=== PATIENT | female | born 1985 | race Caucasian/White ===

== ENCOUNTER 2017-09-05 04:50 | Emergency (ER) | payer OTHER ==
--- NOTE | 2017-09-05 05:08 | ED Physician Documentation ---
PD HPI ABD PAIN - Stated complaint Stated Complaint: ABDOMINAL PAIN - Chief complaint Chief Complaint: Abd Pain - History obtained from History obtained from: Patient - History of Present Illness Timing - onset: How many days ago (2) Timing - duration: Days (2) Timing - details: Gradual onset, Still present, Waxing and waning Quality: Cramping, Aching, Pain Location: RUQ, Epigastric Radiation: Upper back. No: Chest Improved by: No: Eating Worsened by: Eating. No: Palpation Associated symptoms: Nausea. No: Fever, Vomiting, Diarrhea, Constipation, Melena, Dysuria, Hematuria Similar symptoms before: Has not had sx before Recently seen: Not recently seen Review of Systems Constitutional: denies: Fever, Chills Nose: denies: Rhinorrhea / runny nose, Congestion Throat: denies: Sore throat Cardiac: denies: Chest pain / pressure, Palpitations Respiratory: denies: Dyspnea GI: reports: Abdominal Pain, Nausea, Vomiting (just once). denies: Constipation , Diarrhea : denies: Dysuria, Frequency PD PAST MEDICAL HISTORY - Past Medical History Past Medical History: No GI: None - Past Surgical History Past Surgical History: No - Present Medications Home Medications: Ambulatory Orders Medication Instructions Recorded Confirmed Famotidine [Pepcid] 20 mg PO ONCE #15 tablet 09/05/17 Ondansetron Odt [Zofran] 4 mg TL Q6H PRN #15 tablet 09/05/17 - Allergies Allergies/Adverse Reactions: Allergies Allergy/AdvReac Type Severity Reaction Status Date / Time No Known Drug Allergies Allergy Verified 09/05/17 04:57 - Social History Does the pt smoke?: No Smoking Status: Never smoker Does the pt drink ETOH?: Yes Does the pt have substance abuse?: No PD ED PE NORMAL - Vitals Vital signs reviewed: Yes - General General: Alert and oriented X 3, Well developed/nourished - HEENT HEENT: PERRL, Moist mucous membranes (nonicteric), Pharynx benign - Neck Neck: Supple, no meningeal sign, No adenopathy - Cardiac Cardiac: RRR (mild tachy), No murmur - Respiratory Respiratory: Clear bilaterally - Abdomen Abdomen: Normal bowel sounds, Soft, Non distended, No organomegaly, Other ( tender upper abd mid and right, without percussion tenderness nor rebound. Bedside U/S shows normal appearing GB with limited view.) Results - Vitals Vitals: Vital Signs - 24 hr 09/05/17 09/05/17 04:54 06:35 Temperature 36.8 C 36.8 C Heart Rate 105 H 68 Respiratory 18 16 Rate Blood Pressure 156/100 H 110/62 O2 Saturation 98 96 Oxygen O2 Source Room air - Labs Labs: Laboratory Tests 09/05/17 09/05/17 05:25 05:25 WBC 9.9 RBC 4.68 Hgb 13.9 Hct 42.2 MCV 90.1 MCH 29.7 MCHC 33.0 RDW 12.9 Plt Count 254 MPV 7.2 L Neut # 6.3 Lymph # 2.9 Tama # 0.7 Eos # 0.1 Baso # 0.0 Absolute Nucleated RBC 0.00 Nucleated RBC % 0.0 Sodium 136 Potassium 3.6 Chloride 104 Carbon Dioxide 24 Anion Gap 8.0 BUN 13 Creatinine 0.5 Estimated GFR (MDRD) 143 Glucose 104 H Calcium 8.2 L Total Bilirubin 0.8 AST 77 H ALT 141 H Alkaline Phosphatase 74 Total Protein 7.5 Albumin 4.3 Globulin 3.2 Albumin/Globulin Ratio 1.3 Lipase 19 L PD MEDICAL DECISION MAKING - ED course Complexity details: reviewed results (labs are okay and bedside U/S shows normal appearing GB. ), re-evaluated patient (improved with fluids and meds.), considered differential, d/w patient Departure - Departure Disposition: 01 Home, Self Care Clinical Impression: Abdominal pain Qualifiers: Abdominal location: upper abdomen, unspecified Qualified Code(s): R10.10 - Upper abdominal pain, unspecified Condition: Stable Record reviewed to determine appropriate education?: Yes Instructions: ED Abdominal Pain Unkn Cause Follow-Up: Sarah Wagner PA-C [Primary Care Provider] - Prescriptions: Famotidine [Pepcid] 20 mg PO ONCE #15 tablet Ondansetron Odt [Zofran] 4 mg TL Q6H PRN #15 tablet PRN Reason: Nausea / Vomiting Comments: Small frequent fluids and bland food. Tylenol if needed for pain. This might be an irritation of the stomach called gastritis. I would avoid ibuprofen or naproxen for pain. These may irritate the stomach. Add hydrocodone if needed for pain every 4-6 hours. Use some acid reducing medicines such as famotidine daily for 10-14 days. The pain medications can be constipating so it take a daily stool softener for the next few days. Recheck if not improved in the next day and follow-up with your primary care if not better through tomorrow. Return if worsening pain, fever, repetitive vomiting, blood in the stool, other concerns. Discharge Date/Time: 09/05/17 06:55
[2017-09-05] MEDS ORDERED: MAG HYDROX/AL HYDROX/SIMETH 30 ML UDC PO STA (05:19)
[2017-09-05] MEDS ORDERED: LIDOCAINE VISCOUS 2% 15 ML UDC MM STA (05:19)
[2017-09-05] MEDS ORDERED: ONDANSETRON 4 MG/2 ML VIAL IVP STA (05:19)
[2017-09-05] MEDS ORDERED: ACETAMINOPHEN 325 MG TABLET PO STA (05:19)
[2017-09-05] MEDS ORDERED: LIDOCAINE VISCOUS 2% 15 ML UDC MM ONE (05:33)
[2017-09-05] MEDS ORDERED: ACETAMINOPHEN 325 MG TABLET PO ONE (05:33)
[2017-09-05] MEDS ORDERED: MAG HYDROX/AL HYDROX/SIMETH 30 ML UDC ONE (05:33)
[2017-09-05 05:38] LABS: BASOPHILS % (AUTO) 0.3 %; EOSINOPHILS # (AUTO) 0.1 10^3/uL (0.0-0.7); EOSINOPHILS % (AUTO) 0.9 %; HCT - HEMATOCRIT 42.2 % (37.0-47.0); HGB - HEMOGLOBIN 13.9 g/dL (12.0-16.0); LYMPHOCYTES # (AUTO) 2.9 10^3/uL (1.5-3.5); MEAN CORPUSCULAR HEMOGLOBIN 29.7 pg (27.0-31.0); MEAN CORPUSCULAR VOLUME 90.1 fL (81.0-99.0); MEAN PLATELET VOLUME 7.2 fL (7.9-10.8); MONOCYTES # (AUTO) 0.7 10^3/uL (0.0-1.0); MONOCYTES % (AUTO) 6.8 %; NEUTROPHILS # (AUTO) 6.3 10^3/uL (1.5-6.6); RED BLOOD COUNT 4.68 10^6/uL (4.20-5.40); RED CELL DISTRIBUTION WIDTH 12.9 % (12.0-15.0); UNCORRECTED WHITE BLOOD COUNT 9.9 x10^3/uL; WHITE BLOOD COUNT 9.9 x10^3/uL (4.8-10.8)
[2017-09-05 05:48] LABS: ALBUMIN/GLOBULIN RATIO 1.3 (1.0-2.2); BILIRUBIN,TOTAL 0.8 mg/dL (0.2-1.0); CALCIUM 8.2 mg/dL (8.5-10.3); CREATININE 0.5 mg/dL (0.4-1.0); POTASSIUM 3.6 mmol/L (3.5-5.0); TOTAL PROTEIN 7.5 g/dL (6.7-8.2)
[2017-09-05] MEDS ORDERED: KETOROLAC 60 MG/2 ML VIAL IVP STA (06:10)
[2017-09-05] MEDS ORDERED: HYDROcod/ACET 5/325 Prepack 6 PO ONE ×2 (06:11→06:32)
[2017-09-05] MEDS ORDERED: KETOROLAC 30 MG/ML VIAL ONE (06:32)
[2017-09-05 06:37] VITALS: BP 110/62
== END 2017-09-05 06:55 | disposition home or self-care (01) ==
LOC: ED 04:50
DX: R10.11 Right upper quadrant pain (principal); R10.13 Epigastric pain; R11.0 Nausea
CPT/HCPCS: 36415; 80053; 83690; 85025; 96374; 96375; 99283; 99284; A9270

== ENCOUNTER 2018-03-11 17:18 | Emergency (ER) | payer OTHER ==
[2018-03-11 17:43] LABS: GLUCOSE, URINE (UA) NEGATIVE (NEGATIVE); KETONES,URINE (UA) >=80 mg/dL (NEGATIVE); LEUKOCYTE ESTERASE, URINE NEGATIVE (NEGATIVE); NITRITE,URINE NEGATIVE (NEGATIVE); OCCULT BLOOD,URINE MODERATE (NEGATIVE); PH,URINE 5.5 PH (5.0-7.5); PROTEIN,URINE 30 mg/dL (NEGATIVE); UROBILINOGEN,URINE 4 E.U./dL (NORMAL)
[2018-03-11] MEDS ORDERED: SODIUM CHLORIDE 0.9% 1,000 ML IV ONE (17:46)
[2018-03-11 17:47] LABS: CLARITY,URINE HAZY (CLEAR)
--- NOTE | 2018-03-11 17:47 | ED Physician Documentation ---
History of Present Illness - Stated complaint Stated Complaint: N/V+5DAYS - Chief complaint Chief Complaint: Abd Pain - History obtained from History obtained from: Patient - History of Present Illness Timing: How many days ago (5) Pain level max: 5 Pain level now: 5 Improved by: nothing Worsened by: eating - Additonal information Additional information: States intermittent vomiting for past 5 days. Has epigastric pain, waxes and wanes. Has never had symptoms like this before. Had an IUD placed approximately 2 months ago. No recent antibiotics. No recent travel. No bad food. 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 - Present Medications Home Medications: Ambulatory Orders Medication Instructions Recorded Confirmed Famotidine [Pepcid] 20 mg PO BID #60 tablet 03/11/18 Ondansetron Odt [Zofran] 4 mg TL Q6H PRN #10 tablet 03/11/18 - Allergies Allergies/Adverse Reactions: Allergies Allergy/AdvReac Type Severity Reaction Status Date / Time No Known Drug Allergies Allergy Verified 03/11/18 17:30 - Social History Does the pt smoke?: No Smoking Status: Never smoker Does the pt drink ETOH?: Yes Does the pt have substance abuse?: No PD ED PE NORMAL - Vitals Vital signs reviewed: Yes - General General: Alert and oriented X 3, No acute distress - HEENT HEENT: PERRL, Moist mucous membranes - Neck Neck: Supple, no meningeal sign - Cardiac Cardiac: RRR, Strong equal pulses - Respiratory Respiratory: No respiratory distress, Clear bilaterally - Abdomen Abdomen: Soft, Non tender, Non distended - Back Back: No CVA TTP, No spinal TTP - Derm Derm: Warm and dry - Extremities Extremities: No edema, No calf tenderness / cord - Neuro Neuro: Alert and oriented X 3 - Psych Psych: Normal mood, Normal affect Results - Vitals Vitals: Vital Signs - 24 hr 03/11/18 03/11/18 03/11/18 17:28 17:32 19:35 Temperature 98.6 C H Heart Rate 85 83 67 Respiratory 22 16 17 Rate Blood Pressure 150/94 H 145/95 H 148/89 H O2 Saturation 100 100 100 03/11/18 03/11/18 20:52 21:58 Temperature Heart Rate 68 Respiratory 16 17 Rate Blood Pressure 137/87 H O2 Saturation 100 Oxygen O2 Source Room air - Labs Labs: Laboratory Tests 03/11/18 03/11/18 03/11/18 17:31 18:04 18:04 WBC 14.5 H RBC 4.98 Hgb 14.7 Hct 44.2 MCV 88.7 MCH 29.5 MCHC 33.2 RDW 13.0 Plt Count 364 MPV 7.2 L Neut # (Auto) 9.1 H Lymph # (Auto) 4.7 H [place] # (Auto) 0.6 Eos # (Auto) 0.0 Baso # (Auto) 0.1 Absolute Nucleated RBC 0.01 Nucleated RBC % 0.0 Sodium 133 L Potassium 3.5 Chloride 97 L Carbon Dioxide 22 Anion Gap 14.0 H BUN 15 Creatinine 0.6 Estimated GFR (MDRD) 116 Glucose 96 Calcium 9.7 Total Bilirubin 2.0 H AST 112 H ALT 116 H Alkaline Phosphatase 55 Total Protein 9.3 H Albumin 5.1 Globulin 4.2 Albumin/Globulin Ratio 1.2 Lipase 32 Urine Color DARK YELLOW Urine Clarity HAZY Urine pH 5.5 Ur Specific Bixby >=1.030 H Urine Protein 30 H Urine Glucose (UA) NEGATIVE Urine Ketones >=80 H Urine Occult Blood MODERATE H Urine Nitrite NEGATIVE Urine Bilirubin MODERATE H Urine Urobilinogen 4 H Ur Leukocyte Esterase NEGATIVE Urine RBC 11-25 H Urine WBC 6-10 H Ur Squamous Epith Cells MANY Squamous H Urine Bacteria Many H Urine Mucus Few Strands Ur Microscopic Review INDICATED Urine Culture Comments NOT INDICATED Urine HCG, Qual NEGATIVE - Rads (name of study) RUQ US Radiology: Prelim report reviewed, EMP read contemporaneously, See rad report ( No cholelithiasis nor cholecystitis. . Fatty liver with 2 small lesions right lobe, consistent with hemangiomas. ) PD MEDICAL DECISION MAKING - ED course Complexity details: reviewed results, re-evaluated patient, considered differential, d/w patient ED course: Patient is a 32-year-old female who presents to the emergency department with vomiting for the past 4-5 days, had diarrhea initially but now resolved. She feels much better after IV fluids and Zofran. GI cocktail resolved her abdominal pain. Possible gastritis from the vomiting? She is well-appearing, nontoxic. Mild leukocytosis. Still has no abdominal tenderness on exam. No CVA tenderness. Urinalysis appears contaminated and she does not have symptoms consistent with pyelonephritis or UTI. Will continue supportive care and follow -up with her doctor. Patient counseled regarding signs and symptoms for which I believe and urgent re-evaluation would be necessary. Patient with good understanding of and agreement to plan and is comfortable going home at this time This document was made in part using voice recognition software. While efforts are made to proofread this document, sound alike and grammatical errors may occur. Departure - Departure Disposition: 01 Home, Self Care Clinical Impression: Elevated liver enzymes Vomiting Qualifiers: Vomiting type: unspecified Vomiting Intractability: non-intractable Nausea presence: with nausea Qualified Code(s): R11.2 - Nausea with vomiting, unspecified Gastritis Qualifiers: Gastritis type: unspecified gastritis Chronicity: acute Gastritis bleeding: without bleeding Qualified Code(s): K29.00 - Acute gastritis without bleeding Condition: Good Instructions: ED Gastritis, ED Nausea Vomiting Follow-Up: your,doctor in 1 week if not better [Other] Prescriptions: Famotidine [Pepcid] 20 mg PO BID #60 tablet Ondansetron Odt [Zofran] 4 mg TL Q6H PRN #10 tablet PRN Reason: Nausea / Vomiting Comments: Return if you worsen. This should improve over the next few days. Follow-up with your doctor for repeat testing of your liver enzymes only 1-2 weeks as they were elevated today. Discharge Date/Time: 03/11/18 22:05
[2018-03-11 17:50] LABS: BILIRUBIN,URINE MODERATE (NEGATIVE); HCG UR QUAL NEGATIVE; ICTOTEST,URINE POSITIVE
[2018-03-11] MEDS ORDERED: ONDANSETRON 4 MG/2 ML VIAL IVP STA (18:02)
[2018-03-11 18:09] LABS: BACTERIA,URINE Many /HPF (None Seen); SQUAMOUS EPITHELIAL CELL,UR MANY Squamous (<= Few)
[2018-03-11 18:10] LABS: MUCUS,URINE Few Strands
[2018-03-11 18:15] LABS: BASOPHILS # (AUTO) 0.1 10^3/uL (0.0-0.1); BASOPHILS % (AUTO) 0.5 %; EOSINOPHILS % (AUTO) 0.2 %; HGB - HEMOGLOBIN 14.7 g/dL (12.0-16.0); LYMPHOCYTES # (AUTO) 4.7 10^3/uL (1.5-3.5); LYMPHOCYTES % (AUTO) 32.3 %; MEAN CORPUSCULAR HEMOGLOBIN 29.5 pg (27.0-31.0); MEAN CORPUSCULAR HGB CONC 33.2 g/dL (32.0-36.0); MEAN CORPUSCULAR VOLUME 88.7 fL (81.0-99.0); MEAN PLATELET VOLUME 7.2 fL (7.9-10.8); MONOCYTES # (AUTO) 0.6 10^3/uL (0.0-1.0); NEUTROPHILS # (AUTO) 9.1 10^3/uL (1.5-6.6); PLT - PLATELET COUNT 364 10^3/uL (130-450); RED BLOOD COUNT 4.98 10^6/uL (4.20-5.40); WHITE BLOOD COUNT 14.5 x10^3/uL (4.8-10.8)
[2018-03-11 18:32] LABS: ALBUMIN 5.1 g/dL (3.2-5.5); ALBUMIN/GLOBULIN RATIO 1.2 (1.0-2.2); CALCIUM 9.7 mg/dL (8.5-10.3); CREATININE 0.6 mg/dL (0.4-1.0); TOTAL PROTEIN 9.3 g/dL (6.7-8.2)
--- NOTE | 2018-03-11 20:46 | Ultrasound Preliminary Report ---
Exam: US ABDOMEN LIMITED IMPRESSION: 1. No cholelithiasis nor cholecystitis. 2. Fatty liver with 2 small lesions right lobe, consistent with hemangiomas. [facility] SITE ID: [id number]
[2018-03-11] MEDS ORDERED: KETOROLAC 60 MG/2 ML VIAL IVP STA (20:52)
[2018-03-11] MEDS ORDERED: MAG HYDROX/AL HYDROX/SIMETH 30 ML UDC PO STA (21:08)
[2018-03-11] MEDS ORDERED: LIDOCAINE VISCOUS 2% 15 ML UDC MM STA (21:08)
[2018-03-11] MEDS ORDERED: FAMOTIDINE 20 MG TABLET PO STA (21:08)
[2018-03-11] MEDS ORDERED: SUCRALFATE 1 GM/10 ML UDC PO STA (21:08)
[2018-03-11] MEDS ORDERED: PHENobarb/HYOSCY/ATROPINE/SCOP 5 ML UDC PO STA (21:08)
--- NOTE | 2018-03-11 21:26 | Ultrasound Report ---
EXAM: ABDOMEN ULTRASOUND LIMITED, RIGHT UPPER QUADRANT. EXAM DATE: 03/11/2018 08:16 PM. CLINICAL HISTORY: Right upper quadrant pain, elevated LFT, vomiting. COMPARISON: None. TECHNIQUE: Real-time scanning was performed with static images obtained. FINDINGS: Liver: 1.1 x 0.8 x 0.6 cm and 1.0 x 1.0 x 1.2 cm uniform echogenic avascular foci right lobe of liver . Rest of the hepatic parenchyma shows mild uniform increased echogenicity. 16.8 cm. Main portal vein flow: Hepatopetal. Gallbladder: Normal. No stones, wall thickening, or sonographic Smith's sign. Biliary System: CBD measures 3.8 mm. No intrahepatic or extrahepatic ductal dilatation. Other: Normal right kidney. No free fluid. IMPRESSION: 1. No cholelithiasis nor cholecystitis. 2. Fatty liver with 2 small lesions right lobe, consistent with hemangiomas. [facility] Referring Provider Line: [phone] SITE ID: [id number]
[2018-03-11 22:01] VITALS: BP 137/87
== END 2018-03-11 22:05 | disposition home or self-care (01) ==
LOC: ED 17:18
DX: R74.8 Abnormal levels of other serum enzymes (principal); R11.2 Nausea with vomiting, unspecified; K29.00 Acute gastritis without bleeding; Z97.5 Presence of (intrauterine) contraceptive device
CPT/HCPCS: 36415; 76705; 80053; 81001; 81025; 83690; 85025; 96361; 96374; 96375; 99283; 99284; A9270; 81003; 87086

== ENCOUNTER 2018-07-25 08:00 | Outpatient (CLI) | payer OTHER | END 2018-07-25 08:01 | disposition home or self-care (01) | LOC: LAB.R 08:00 | PROVIDERS: ATTEND Nurse Practitioner | DX: R21 Rash and other nonspecific skin eruption (principal) | CPT/HCPCS: 87070; 87205 ==